=== PATIENT | male | born 1955 | race Caucasian/White ===

== ENCOUNTER 2017-09-08 14:23 | Emergency (ER) | payer OTHER ==
[~2017-09-08] VITALS: Ht 175.3 cm; Wt 86.0 kg
[~2017-09-08 14:23] MED LIST: AMLO5TAB96 PO; BENA20TA OR
[2017-09-08 14:29] VITALS: BP 149/80; PULSE 79; RESP 16; TEMP 98; O2SAT 98
[2017-09-08] MEDS ORDERED: BENA20TA PO (15:01)
[2017-09-08] MEDS ORDERED: STATIN PO (15:01)
[2017-09-08] MEDS ORDERED: AMLO1POW4 PO (15:01)
[2017-09-08] MEDS ORDERED: LIDOCAINE HCL 1% 50 ML VIAL INFIL ONE (15:15)
[2017-09-08] MEDS ORDERED: BUPIVACAINE HCL PF 0.5% 10 ML VIAL NERV BLOCK ONE (15:15)
[2017-09-08] MEDS ORDERED: DOXY100C PO (15:36)
[2017-09-08] MEDS ORDERED: CIPR-9 PO (15:36)
--- NOTE | 2017-09-08 15:36 | PD ---
HPI Chief Complaint: Laceration/Skin Injury Time Seen by Provider: 14:56 Travel History International Travel<30 days: No Contact w/Intl Traveler<30days: No Traveled to known affect area: No History of Present Illness HPI 62-year-old male complains of pain and swelling and discharge from the right thumb. Patient had a crush injury to right thumb about 2 weeks ago. Patient went fishing 2 days ago and was exposed to dirty salt water. Patient states that he has increasing redness swelling and discharge from the right thumb since then. Patient was seen at local urgent care yesterday and had x-ray done which shows no acute bony injury. Patient was given prescription with clindamycin which she started taking since yesterday. Patient states the pain is sharp stabbing pain localized to the right thumb. Patient denies any pain radiation. Patient denies any fever chills. Patient is up-to-date with TD booster. PFSH Past Medical History Hx Anticoagulant Therapy: Yes (BABY ASA DAILY) Cancer: No Cardiovascular Problems: Yes (CHOL, HTN) Diabetes: No Diminished Hearing: No Hepatitis: No Hiatal Hernia: No Hypertension: Yes Medical other: Yes (MILD ULCERATIVE COLITIS, ARTHRITIS, NECK PAIN) Thyroid Disease: No Tetanus Vaccination: Unknown Influenza Vaccination: No Past Surgical History Other Surgery: Yes (HERNIA REPAIRS) Social History Alcohol Use: Yes (1-2 BEERS A DAY) Tobacco Use: No Substance Use: No Allergies-Medications (Allergen,Severity, Reaction): Coded Allergies: No Known Allergies (Verified Adverse Reaction, Unknown, 09/08/17) Reported Meds & Prescriptions Reported Meds & Active Scripts Active Doxycycline Hyclate 100 Mg Cap 100 Mg PO BID Cipro (Ciprofloxacin HCl) 500 Mg Tab 500 Mg PO BID Reported Benazepril (Benazepril HCl) 20 Mg Tab 20 Mg PO DAILY Amlodipine Besylate 100 % Powder 5 Mg PO DAILY [Statin] Unknown Dose PO DAILY Review of Systems General / Constitutional: No: Fever Eyes: No: Visual changes HENT: No: Headaches Cardiovascular: No: Chest Pain or Discomfort Respiratory: No: Shortness of Breath Gastrointestinal: No: Abdominal Pain Genitourinary: No: Dysuria Musculoskeletal: Positive: Pain Skin: No Rash Neurologic: No: Weakness Psychiatric: No: Depression Endocrine: No: Polydipsia Hematologic/Lymphatic: No: Easy Bruising Physical Exam Narrative GENERAL: Well-nourished, well-developed patient. SKIN: Focused skin assessment warm/dry. HEAD: Normocephalic. EYES: No scleral icterus. No injection or drainage. NECK: Supple, trachea midline. No JVD or lymphadenopathy. CARDIOVASCULAR: Regular rate and rhythm without murmurs, gallops, or rubs. RESPIRATORY: Breath sounds equal bilaterally. No accessory muscle use. GASTROINTESTINAL: Abdomen soft, non-tender, nondistended. MUSCULOSKELETAL: No cyanosis, or edema. BACK: Nontender without obvious deformity. No CVA tenderness. Patient has subungual serosanguineous fluid and discoloration of the entire nailbed of the right thumb. Patient has redness swelling tenderness tissue surrounding the right thumbnail. Data Data Last Documented VS Vital Signs Date Time Temp Pulse Resp B/P (MAP) Pulse Ox O2 Delivery O2 Flow Rate FiO2 09/08/17 14:29 98.0 79 16 149/80 (103) 98 Orders Orders Lidocaine 1% Inj (50 Ml) (Xylocaine 1% I (09/08/17 15:15) Bupivacaine Pf 0.5% Inj (Marcaine Pf 0.5 (09/08/17 15:15) Wound Afb Culture And Stain (09/08/17 15:36) Wound Culture And Gram Stain (09/08/17 15:53) MDM Medical Decision Making Medical Screen Exam Complete: Yes Emergency Medical Condition: Yes Differential Diagnosis Differential diagnosis including cellulitis, abscess, osteomyelitis. Narrative Course 62-year-old male with redness swelling discharge on the right thumb after crush injury to right thumb. X-ray negative for acute injury. Procedures Procedure Narrative 1% lidocaine and 0.5% Marcaine digital block right thumb. Right thumb nail was removed. Macerated tissue and serosanguineous fluid was irrigated out the wound. The wound was cleaned and irrigated and dressing applied. Diagnosis Primary Impression: Cellulitis of right thumb Patient Instructions: General Instructions Additional Instructions: Take antibiotics as directed. Wound care daily. Follow-up with hand surgeon in 2 days. Med/Other Pt SpecificInfo: Prescription(s) given Scripts Hydrocodone-Acetaminophen ([place]) 5 Mg-325 Mg Tab 1 TAB PO Q6H Y for PAIN, #20 TAB 0 Refills Prov: Michael Roque MD 09/08/17 Doxycycline Hyclate (Doxycycline Hyclate) 100 Mg Cap 100 MG PO BID for Infection, #20 CAP 0 Refills Prov: Michael Roque MD 09/08/17 Ciprofloxacin (Cipro) 500 Mg Tab 500 MG PO BID for Infection, #20 TAB 0 Refills Prov: Michael Roque MD 09/08/17 Disposition: 01 DISCHARGE HOME Condition: Stable Michael Roque MD Sep 08, 2017 15:36
[2017-09-08] MEDS ORDERED: NORC5TAB PO (15:56)
[2017-09-08] MEDS ORDERED: CIPROFLOXACIN 500 MG TAB PO ONE (16:00)
[2017-09-08] MEDS ORDERED: DOXYCYCLINE HYCLATE 100 MG TAB PO ONE (16:00)
== END 2017-09-08 16:20 | disposition home or self-care (01) ==
LOC: PHEFT 14:23
DX: L03.011 Cellulitis of right finger (principal); B96.89 Other specified bacterial agents as the cause of diseases classified elsewhere; I10 Essential (primary) hypertension; E78.5 Hyperlipidemia, unspecified; Z79.82 Long term (current) use of aspirin
CPT/HCPCS: 11730; 86403; 87070; 87205

== ENCOUNTER 2017-09-12 19:33 | Emergency (ER) | payer OTHER ==
[~2017-09-12] VITALS: Ht 175.3 cm; Wt 89.4 kg
[~2017-09-12 19:33] MED LIST changes: +AMLO1POW4 PO; -AMLO5TAB96 PO; -BENA20TA OR; +BENA20TA PO; +CIPR-9 PO; +DOXY100C PO; +NORC5TAB PO; +STATIN PO
[2017-09-12 19:39] VITALS: BP 134/90; PULSE 113; RESP 16; TEMP 99; O2SAT 95
--- NOTE | 2017-09-12 19:57 | PD ---
HPI Chief Complaint: Fever Time Seen by Provider: 19:52 Travel History International Travel<30 days: No Contact w/Intl Traveler<30days: No Traveled to known affect area: No History of Present Illness HPI 62-year-old male presents to the emergency department for complaint of cough and fever as well as recent crush injury with secondary infection of the right thumb. Patient states that since last evening's had cough with shortness of breath and complaining of pain in the diaphragm from frequent coughing and has developed a fever with myalgias and arthralgias. Patient recently as of Wednesday was seen by hand surgeon Dr. Arguelles for infected right thumb has been on doxycycline and Cipro and was told if he developed a fever to come to the emergency room as she could be developing osteomyelitis of the right thumb. Patient does not report any new or worsening thumb pain. Patient has been changing the dressing daily as instructed and sucking his thumb and Betadine and dressing the thumb with Betadine. Patient states this evening his temperature was 101.9 and decided to come to the emergency room for evaluation. Patient did not have the flu vaccine. Patient has hypertension denies other chronic medical concerns. [facility] Past Medical History Narrative Medical Dyslipidemia hypertension aspirin use infected right thumb prostate biopsy epididymitis herniorrhaphy occasional alcohol use; nursing notes reviewed Hx Anticoagulant Therapy: Yes (ASA 81 MG ) Cancer: No Cardiovascular Problems: Yes (CHOL, HTN) Diabetes: No Diminished Hearing: No Hepatitis: No Hiatal Hernia: No Hypertension: Yes Thyroid Disease: No Past Surgical History Other Surgery: Yes (HERNIA REPAIRS) Social History Alcohol Use: Yes (1-2 BEERS A DAY) Tobacco Use: No Substance Use: No Allergies-Medications (Allergen,Severity, Reaction): Coded Allergies: No Known Allergies (Verified Adverse Reaction, Unknown, 09/12/17) Reported Meds & Prescriptions Reported Meds & Active Scripts Active Tamiflu (Oseltamivir Phosphate) 75 Mg Cap 75 Mg PO BID 5 Days [place] (Hydrocodone-Acetaminophen) 5 Mg-325 Mg Tab 1 Tab PO Q6H PRN Doxycycline Hyclate 100 Mg Cap 100 Mg PO BID Cipro (Ciprofloxacin HCl) 500 Mg Tab 500 Mg PO BID Reported Benazepril (Benazepril HCl) 20 Mg Tab 20 Mg PO DAILY Amlodipine Besylate 100 % Powder 5 Mg PO DAILY [Statin] Unknown Dose PO DAILY Review of Systems Except as stated in HPI: all other systems reviewed are Neg General / Constitutional: Positive: Fever, Chills HENT: Positive: Congestion Cardiovascular: No: Chest Pain or Discomfort Respiratory: Positive: Cough, Shortness of Breath, No: Wheezing Gastrointestinal: No: Nausea, Vomiting, Diarrhea, Abdominal Pain Genitourinary: No: Dysuria Musculoskeletal: Positive: Myalgias, Arthralgias Skin: No Rash Neurologic: No: Weakness Psychiatric: Positive: Anxiety Hematologic/Lymphatic: No: Lymph Node Enlargement Physical Exam Narrative GENERAL: Well-developed well-nourished male in no acute distress no respiratory distress SKIN: Warm and dry. HEAD: Normocephalic. EYES: No scleral icterus. No injection or drainage. NECK: Supple, trachea midline. No JVD or lymphadenopathy. CARDIOVASCULAR: Regular rate and rhythm without murmurs, gallops, or rubs. RESPIRATORY: Breath sounds equal bilaterally. Rare left base crackles. No accessory muscle use. GASTROINTESTINAL: Abdomen soft, non-tender, nondistended. MUSCULOSKELETAL: No cyanosis, or edema. Attention right thumb: Nailbed looks like it is healing no purulent drainage healthy granulation tissue is noted capillary refill is brisk and less than 2 seconds sensation is intact patient has some decreased range of motion at the IP secondary to soft tissue swelling which reportedly is decreased. BACK: Nontender without obvious deformity. No CVA tenderness. Data Data Last Documented VS Vital Signs Date Time Temp Pulse Resp B/P (MAP) Pulse Ox O2 Delivery O2 Flow Rate FiO2 09/12/17 21:05 99.0 85 16 148/85 (106) 98 Room Air Orders Orders Chest, Single Ap (09/12/17 ) Influenzae A/B Antigen (09/12/17 20:11) Oseltamivir (Tamiflu) (09/12/17 21:30) MDM Medical Decision Making Medical Screen Exam Complete: Yes Emergency Medical Condition: Yes Medical Record Reviewed: Yes Interpretation(s) influenza a/b/ag: positive Differential Diagnosis Viral syndrome, influenza, pneumonia, osteomyelitis, necrotizing fasciitis Narrative Course Flu specimen collected and chest x-ray ordered Chest x-ray reveals no acute process Influenza test is positive and patient given first dose of Tamiflu in the emergency department as well as a Tamiflu prescription Patient stable for outpatient management his right thumb looks good and looks like it's has healthy granulation tissue there is no drainage patient has normal tenderness to palpation of the digit and brisk capillary refill less than 2 seconds sensation is intact range of motion is decreased secondary to swelling that reportedly according the patient and patient's daughter who is a PA has decreased. Diagnosis Primary Impression: Influenza Referrals: Primary Care Physician 2 days Patient Instructions: General Instructions Additional Instructions: Increase fluid hydration Take acetaminophen/Tylenol every 4 hours for fever 100.4F or greater Take ibuprofen/Advil/Motrin 600 mg as often as every 6 hours or up to 5800 mg as often as every 8 hours for fever 100.4F or greater or for minor pain Continue your current medication/antibiotic as prescribed and complete antibiotic until all the medication is taken Follow-up with your hand surgeon as scheduled Follow-up with your primary care provider call office to schedule follow-up appointment Return to the emergency department for any pain fever or drainage from the thumb No work 5 days Med/Other Pt SpecificInfo: Prescription(s) given Scripts Oseltamivir (Tamiflu) 75 Mg Cap 75 MG PO BID for Mgmt Viral Infection for 5 Days, #10 CAP 0 Refills Prov: Kasey Euceda MD 09/12/17 Disposition: 01 DISCHARGE HOME Condition: Stable Kasey Euceda MD Sep 12, 2017 19:57
[2017-09-12 21:05] VITALS: BP 148/85; PULSE 85; RESP 16; TEMP 99; O2SAT 98
[2017-09-12] MEDS ORDERED: OSEL75 PO (21:21)
--- NOTE | 2017-09-12 21:21 | RADRPT ---
EXAM DATE/TIME: 09/12/2017 20:14 [place] COMPARISON: No previous studies available for comparison. INDICATIONS : Fever, cough. MEDICAL HISTORY : Hypertension. SURGICAL HISTORY : None. ENCOUNTER: Initial ACUITY: 1 day PAIN SCORE: 0/10 LOCATION: Bilateral chest FINDINGS: Single AP view of the chest. The lungs are clear. Cardiomediastinal silhouette within normal limits. No evidence of pleural effusion or pneumothorax. CONCLUSION: No acute cardiopulmonary disease identified. Damon Amos MD on September 12, 2017 at 21:19 Board Certified Radiologist. This report was verified electronically.
[2017-09-12] MEDS ORDERED: OSELTAMIVIR PHOSPHATE 75 MG CAP PO ONE (21:30)
== END 2017-09-12 21:36 | disposition home or self-care (01) ==
LOC: PHED 19:33
DX: J10.1 Influenza due to other identified influenza virus with other respiratory manifestations (principal); E78.5 Hyperlipidemia, unspecified; I10 Essential (primary) hypertension; Z79.82 Long term (current) use of aspirin; Z79.899 Other long term (current) drug therapy
CPT/HCPCS: 71010; 87804; 99284